=== PATIENT | female | born 1960 | race Caucasian/White ===

== ENCOUNTER 2017-08-09 07:43 | Emergency (ER) | payer OTHER ==
[~2017-08-09] VITALS: Ht 165.1 cm; Wt 61.2 kg
--- NOTE | 2017-08-09 08:05 | Emergency Room Report ---
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 N Clinical Suspician of Infection? N Mental Status: 1 - Regular (Normal Baseline) Sepsis Risk:Low Sepsis Risk Have you (or family members/close friends) recently traveled outside the [place]? N If Yes, where/when: Have you had exposure to infectious disease within the past month? N TB? Other? Specify: Source patient, RN notes reviewed Exam Limitations no limitations Comment Pt has noticed a small lump in RLQ for over a year but over the past 3 days it has gotten red and inflamed and hurts. No fever with this. Only surgery in past is GB Cardiac Chest Pain Chest pain indicative of cardiac No ALLERGIES Uncoded Allergies: INGREDIENT: NO KNOWN - NO KNOWN DRUG ALLERGY (08/26/03) Home Medications Reported Medications VENLAFAXINE HCL (Venlafaxine HCl ER) 150 MG PO DAILY #30 History Medical History General Angina: No [place]: No Hypertension? No Hyperlipidemia? No CHF? No COPD? No Asthma? No Hernia? No CVA? No Seizures? No Diabetes? No UTI? No Stones? No GB Disease: Yes Hepatitis? No Cataracts? No Glaucoma? No TB? No Cancer? 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 Lung Sounds bilateral: normal breath sounds. 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 Yes Tre was queried for this patient? Yes Reference #: [id number] Risks/benefits of using a controlled substance for treatment were not discussed w/pt Results/Orders Orders Procedure Date/time Status DIET-NOTHING BY MOUTH 08/[address] ABD & PELVIS W/O CONTRAST 08/[address] ABD/PELVIS REQ 08/09 806 Complete XRAY/CT/US XRAY/CT/US CT abdomen, pelvis CT interpretation by discussed w/radiologist Time results known: 906 CT Results sebaceous cyst RLQ Departure Departure Time of Disposition 906 Disposition DC Home or Self Care(routine) Clinical Impression Primary Impression: Infected sebaceous cyst of skin Condition STABLE Referrals Wally Weaver MD Patient Instructions DI for Epidermal Cyst, Epidermal Cyst Additional Instructions Apply warm compresses and take meds as directed. and followup with Dr. Weaver to have cyst removed Discharge Counseling Counseled pt/family regarding diagnosis, test results, medications/RX, home care, follow up needs Prescriptions Current Visit Scripts Cephalexin (Keflex 500MG) 500 MG PO QID #40 CAP HYDROCODONE 5MG/APAP 325MG (Hydrocodon-Acetaminophen 5-325) 1 TAB PO Q4HP PRN pain #20 TAB ED Critical Care Critical Care No If Critical Care minutes are documented, the time involved in the performance of seperately reportable procedures was not counted toward critical care time documented. I directly delivered medical care to this critically ill and/or injured patient. Timely evaluation and treatment was necessary to address the significant organ system(s) dysfunction present in this patient. at 0910
--- NOTE | 2017-08-09 08:05 | Emergency Room Report ---
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 N Clinical Suspician of Infection? N Mental Status: 1 - Regular (Normal Baseline) Sepsis Risk:Low Sepsis Risk Have you (or family members/close friends) recently traveled outside the [place]? N If Yes, where/when: Have you had exposure to infectious disease within the past month? N TB? Other? Specify: Source patient, RN notes reviewed Exam Limitations no limitations Comment Pt has noticed a small lump in RLQ for over a year but over the past 3 days it has gotten red and inflamed and hurts. No fever with this. Only surgery in past is GB Cardiac Chest Pain Chest pain indicative of cardiac No ALLERGIES Uncoded Allergies: INGREDIENT: NO KNOWN - NO KNOWN DRUG ALLERGY (08/26/03) Home Medications Reported Medications VENLAFAXINE HCL (Venlafaxine HCl ER) 150 MG PO DAILY #30 History Medical History General Angina: No [place]: No Hypertension? No Hyperlipidemia? No CHF? No COPD? No Asthma? No Hernia? No CVA? No Seizures? No Diabetes? No UTI? No Stones? No GB Disease: Yes Hepatitis? No Cataracts? No Glaucoma? No TB? No Cancer? 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 Lung Sounds bilateral: normal breath sounds. 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 Yes Tre was queried for this patient? Yes Reference #: [id number] Risks/benefits of using a controlled substance for treatment were not discussed w/pt Results/Orders Orders Procedure Date/time Status DIET-NOTHING BY MOUTH 08/[address] ABD & PELVIS W/O CONTRAST 08/[address] ABD/PELVIS REQ 08/09 806 Complete XRAY/CT/US XRAY/CT/US CT abdomen, pelvis CT interpretation by discussed w/radiologist Time results known: 906 CT Results sebaceous cyst RLQ Departure Departure Time of Disposition 906 Disposition DC Home or Self Care(routine) Clinical Impression Primary Impression: Infected sebaceous cyst of skin Condition STABLE Referrals Wally Weaver MD Patient Instructions DI for Epidermal Cyst, Epidermal Cyst Additional Instructions Apply warm compresses and take meds as directed. and followup with Dr. Weaver to have cyst removed Discharge Counseling Counseled pt/family regarding diagnosis, test results, medications/RX, home care, follow up needs Prescriptions Current Visit Scripts Cephalexin (Keflex 500MG) 500 MG PO QID #40 CAP HYDROCODONE 5MG/APAP 325MG (Hydrocodon-Acetaminophen 5-325) 1 TAB PO Q4HP PRN pain #20 TAB ED Critical Care Critical Care No If Critical Care minutes are documented, the time involved in the performance of seperately reportable procedures was not counted toward critical care time documented. I directly delivered medical care to this critically ill and/or injured patient. Timely evaluation and treatment was necessary to address the significant organ system(s) dysfunction present in this patient. at 0910
[2017-08-09 09:15] VITALS: BP 156/95
--- NOTE | 2017-08-09 09:26 | RADIOLOGY REPORT PS360 ---
CT ABD PELVIS W/O CONTRAST CLINICAL INDICATION: Right mid abdominal pain SMALL INFLAMED LUMP ON ABDOMINAL WALL IN RLQ ORDERING PHYSICIAN: Duong Valles MD PATIENT AGE: 56 years COMPARISON: None TECHNIQUE: Axial images obtained with sagittal and coronal reformats. PROCEDURE: Oral Contrast: None IV Contrast: None . FINDINGS: No acute finding in the lower chest. There is diffuse hepatic steatosis. No focal liver lesion. Prior cholecystectomy without biliary dilatation. The spleen, adrenal glands, pancreas, kidneys, ureters, and urinary bladder have an unremarkable unenhanced appearance. No evidence of appendicitis, diverticulitis, intestinal obstruction, or free air. Hyperdensity is present within the appendix consistent with an appendicolith. No pelvic mass or abnormal fluid collection. There is a 2 cm area of abnormal soft tissue density in the subcutaneous region in the anterior abdominal wall just inferior to the level the umbilicus on the right corresponding to the palpable inflammatory area. This has slight decreased density centrally. No gas is evident within the lesion. This is consistent with a small subcutaneous abscess. There is mild skin thickening at this area. No acute bony anomalies. IMPRESSION: 2 cm fluid collection in the anterior abdominal wall the right just inferior to the level of the umbilicus consistent with a small subcutaneous abscess with associated skin thickening
== END 2017-08-09 09:15 | disposition home or self-care (01) ==
LOC: ER 07:43
DX: L72.3 Sebaceous cyst (principal); Z79.899 Other long term (current) drug therapy

== ENCOUNTER → 2017-08-19 | Outpatient (CLI) | payer OTHER ==
[2017-08-19 11:56] LABS: HEMOGLOBIN 15.3 g/dL (12.2-16.2); LYMPH # 1.9 K/mm3 (0.7-4.5); LYMPH % 33.6 % (10-50.0)
[2017-08-19 12:09] LABS: BUN 15 mg/dL (7-18); GFR (ESTIMATED) 75 ML/MIN (59-)
== END ==
LOC: LAB 11:23
PROVIDERS: Surgery
DX: L03.311 Cellulitis of abdominal wall (principal); L72.3 Sebaceous cyst; Z01.812 Encounter for preprocedural laboratory examination

== ENCOUNTER → 2017-08-24 | Day surgery (SDC) | payer OTHER ==
[~2017-08-24] VITALS: Ht 167.6 cm; Wt 77.1 kg
[~2017-08-24] MED LIST: HYDROCODONE-APA1 TA1 PO; KEFLEX500 M1 PO; VENLAFAXINE HY150 MG PO
--- NOTE | 2017-08-24 10:34 | Anesthesia Record ---
Anesthesia Record Part I Total IV fluids: 250 EBL (ml): 10 Urine Output: 30 B/P: 154/111 % SaO2: 98 Pulse: 83 Resps: 18 Temp: 97.2 Patient is: Awake, Stable Stable to PACU at: 1033 at 1034
--- NOTE | 2017-08-24 10:35 | Operative Note ---
Surgeon/Diagnoses Surgeon/Recreation Counselor(s) Date of procedure: 08/24/17 Surgeon: Wally Weaver Diagnoses Pre-op diagnosis: Abscessed sebaceous cyst on the abdominal wall Post-op diagnosis Same Procedure Procedure Procedure: Excision of abscessed sebaceous cyst with debridement Indications: DELMIS BILLY is a 56 year-old female. She is a 56-year-old white female originally referred from the emergency department after seen by Dr. Valles for "cyst on stomach". She had an apparent small nodule to the RIGHT inferior of her umbilicus for about a year and had never caused her any problems. However, about a week prior to presentation to the emergency department she began developing increasing tenderness redness and swelling. She was seen in the emergency department on 08/09/17. She actually had a CT scan done without any contrast whatsoever for red swollen area on the RIGHT lower abdomen. This revealed findings consistent with a 2 cm lesion in the subcutaneous tissues without abscess. She was started on cephalexin. Warm compresses were recommended. She presents to the office 3 days later. She had evidence of soft tissue infection of the RIGHT lower quadrant. I recommended warm compresses and antibiotics for MRSA coverage. She presented to the office once again and had ongoing findings consistent with an inflamed sebaceous cyst with probable abscess. Plan was made for excision with possibly partial closure versus leaving the wound open with packing. Findings: Consistent with ruptured inflamed abscessed sebaceous cyst Procedure Description: Consent was obtained the patient was taken to the operating room. She is given preoperative intravenous antibiotics. She was taken to the operating room. In the Operating room she was placed in a supine position. Gen. anesthesia was induced. Abdomen was prepped and draped in standard surgical fashion. Inflamed erythematous indurated lesion in the RIGHT lower quadrant was marked with a skin marker for planned elliptical incision. Incision was made and dissection was carried down to some caseous material consistent with a ruptured cyst. There was some fluid and this was sent for culture. Dissection was carried out to normal subcutaneous tissues. The debrided tissues was sent off as a specimen. Wound was irrigated. Hemostasis was achieved with liberal use of electrocautery. Local anesthetic was infiltrated. Incision was partially closed with interrupted 2-0 nylon vertical mattress sutures. Central portion of the wound was packed with a half inch plain packing gauze. Clean dry sterile dressing was applied. EBL (ml): 50 Anesthesia: Gen. Specimens: Debrided sebaceous cyst Culture sent Disposition Disposition: To PACU at 1038
--- NOTE | 2017-08-24 10:35 | Anesthesia Record ---
Anesthesia Record Part II Discharge time: 1103 Destination: Same day surgery PACU nurse assessment review? Yes Patient is: Awake, Stable Anesthesia complications? No at 7265
[2017-08-24 15:00] VITALS: BP 121/96
== END ==
LOC: SDC 08:41
PROVIDERS: Surgery
PROC: 0HB7XZZ Excision of Abdomen Skin, External Approach (ICD-10-PCS; principal; 2017-08-24 10:15)
DX: L72.3 Sebaceous cyst (principal); L03.311 Cellulitis of abdominal wall